=== PATIENT | male | born 1965 | race Caucasian/White ===

== ENCOUNTER → 2020-12-13 | Day surgery (SDC) | payer OTHER ==
[~2020-12-13] VITALS: Ht 195.6 cm; Wt 110.9 kg
[~2020-12-13] MED LIST: ANDRODERM1 EAC1 SC; MINOCYCLINE HC100 MG PO; NORCO 5-325 TA1 EACH PO; THYROID MED PO
[2020-12-13 10:15] LABS: HCT 42.7 % (42.0-52.0); HGB 14.5 g/dl (13.2-18.0); MCH 29.9 pg (25.0-31.0); MPV 10.8 fL (6.0-9.5); RBC 4.85 M/uL (4.70-6.00); WBC 6.3 K/uL (4.0-10.5)
[2020-12-13 10:32] LABS: ALBUMIN 3.4 g/dL (3.4-5.0); BILIRUBIN - TOTAL 0.8 mg/dL (0.2-1.0); BUN/CREAT RATIO (CALC) 23.5 RATIO; CREATININE 0.98 mg/dL (0.67-1.17); GLOBULIN (CALCULATION) 3.3 g/dL; POTASSIUM 4.4 mmol/L (3.5-5.1); TOTAL PROTEIN 6.7 g/dL (6.4-8.2)
== END | disposition home or self-care (01) ==
LOC: FAS 09:36
PROVIDERS: Surgery
DX: L02.414 Cutaneous abscess of left upper limb (principal); L03.114 Cellulitis of left upper limb; Z79.890 Hormone replacement therapy; Z20.822 Contact with and (suspected) exposure to COVID-19
CPT/HCPCS: 36415; 80053; 87070; 87075; 87205; J2250; J2405; J2704; J3010; J7120; U0002